=== PATIENT | female | born 1960 | race Caucasian/White ===

== ENCOUNTER 2020-08-18 13:17 | Emergency (ER) | payer MEDICARE ==
[~2020-08-18] VITALS: Ht 157.5 cm; Wt 74.0 kg
--- NOTE | 2020-08-18 13:20 | NUR ---
Pt ambulatory from [facility] to [facility] [place] without gait disturbance noted. Pt changed into gown and placed on bedside monitor with noted ST in lead II present. Pt with stated memory issues non-dx "for years" but able to give full hx without issue.
--- NOTE | 2020-08-18 13:35 | NUR ---
at bedside for exam.
--- NOTE | 2020-08-18 13:41 | NUR ---
geothermal hvac technician at bedside for EKG 12 lead now.
[2020-08-18] MEDS ORDERED: SODIUM CHLORIDE 0.9% 1,000ML IVBOLUS ONE (14:00)
[2020-08-18] MEDS ORDERED: SODIUM CHLORIDE FLUSH 10ML SYR IVF ONE (14:00)
[2020-08-18] MEDS ORDERED: ONDANSETRON 2MG/ML, 2ML IVPush ONE (14:00)
[2020-08-18] MEDS ORDERED: ONDANSETRON 2MG/ML, 2ML ONE (14:27)
--- NOTE | 2020-08-18 15:00 | NUR ---
5F straight cath used for cath UA specimen as per orders. Pt tolerated well, sterile technique utilized. Pt then felt she needed to use the restroom and was assisted to restroom with standby assistance while using her dual canes to walk. Pt back to room and placed back on monitor. Meal break RN arrived and given report. RN aware of need for IV start, veterinary medicine doctor and IVF started as ordered.
[2020-08-18 15:03] LABS: ALANINE AMINOTRANSFERASE 18 U/L (12-78); ALBUMIN 4.2 g/dL (3.4-5.0); ANION GAP 11 mmol/L (5-15); CALCIUM 9.5 mg/dL (8.5-10.1); CHLORIDE 104 mmol/L (98-107); CREATININE 0.87 mg/dL (0.55-1.02)
[2020-08-18 15:07] LABS: ALKALINE PHOSPHATASE 96 U/L (45-117); BILIRUBIN,TOTAL 0.7 mg/dL (0.2-1.0); TOTAL PROTEIN 8.6 g/dL (6.4-8.2); TROPONIN I < 0.015 ng/mL (0.000-0.045)
--- NOTE | 2020-08-18 15:10 | NUR ---
BREAK RN: PT RESTING IN ROOM. VS STABLE. NO ACUTE DISTRESS NOTED. CALL LIGHT IN PLACE. WILL CONTINUE TO MONITOR WHILE PRIMARY RN IS ON BREAK.
[2020-08-18 15:14] LABS: BASOPHILS % (AUTO) 0 % (0-1); EOSINOPHILS % (AUTO) 0 % (1-7); LYMPHOCYTES % (AUTO) 15 % (22-44); MEAN CORPUSCULAR HEMOGLOBIN 28.1 pg (27.0-34.8); MEAN CORPUSCULAR HGB CONC 33.8 g/dL (32.4-35.8); MEAN PLATELET VOLUME 6.9 fL (7.4-10.4); MONOCYTES % (AUTO) 7 % (2-9); NEUTROPHILS % (AUTO) 78 % (42-75); PLATELET COUNT 324 x10^3/uL (130-400); RED BLOOD COUNT 5.42 x10^6/uL (3.82-5.3); RED CELL DISTRIBUTION WIDTH 13.9 % (9.6-15.2)
[2020-08-18 15:23] LABS: MD NO
--- NOTE | 2020-08-18 15:36 | NUR ---
DONELL MCKEON: REPORT GIVEN TO ILNDA DAMICO
--- NOTE | 2020-08-18 15:41 | NUR ---
Report received from meal break RN and care reassumed. Pt found sitting on edge of bed without acute distress noted.
[2020-08-18 15:45] LABS: MICROSCOPIC INDICATED
--- NOTE | 2020-08-18 17:17 | NUR ---
Pt reassessed without acute changes noted. States nausea is resolved but has heartburn now. IVF completed and site infiltrated when attempted to flush saline lock clear of backed up blood. Site d/c'd and covered with gauze dsg.
[2020-08-18 19:15] VITALS: BP 116/79
[2020-08-18 19:42] LABS: RAPID INFLUENZA A Negative (Negative); RAPID INFLUENZA B Negative (Negative)
== END 2020-08-18 19:17 | disposition home or self-care (01) ==
LOC: ED 16:59
DX: R11.2 Nausea with vomiting, unspecified (principal); Z20.822 Contact with and (suspected) exposure to COVID-19; R19.7 Diarrhea, unspecified; R00.0 Tachycardia, unspecified
CPT/HCPCS: 36415; 76700; 80053; 81001; 83690; 84484; 85025; 87400; 93005; 96361; 96374; 99285; J2405; J7030; U0003